=== PATIENT | female | born 1965 | race Hispanic/Latino ===

== ENCOUNTER → 2022-07-29 | Outpatient (CLI) | payer BC | END | disposition home or self-care (01) | LOC: RAH 11:34 | PROVIDERS: ATTEND Orthopaedic Surgery | DX: S82.035A Nondisplaced transverse fracture of left patella, initial encounter for closed fracture (principal); M25.462 Effusion, left knee; X58.XXXA Exposure to other specified factors, initial encounter; Y93.89 Activity, other specified; Y92.89 Other specified places as the place of occurrence of the external cause; Y99.8 Other external cause status | CPT/HCPCS: 73562 ==